=== PATIENT | male | born 1990 ===

== ENCOUNTER 2020-11-07 18:46 | Inpatient (IN) | payer BC ==
[~2020-11-07] VITALS: Ht 182.9 cm; Wt 102.3 kg
[2020-11-07] MEDS ORDERED: SODIUM CHLORIDE FLUSH 10ML SYR IVF ONE (19:00)
--- NOTE | 2020-11-07 19:11 | NUR ---
BIB FLIGHT FROM [facility]. PT HAVING DIFFICULTY BREATHING WHEN HE WENT THERE, PT WAS 84 ON RA WITH A LOT OF WORK OF BREATHING. PT RECIVED STEROIDS, 3 LITERS FLUIDS, DOXY AND ZOSYN IV, NEG RAPID COVID TEST, CONTINUOUS NEB TREATMENT IN FLIGHT AND NEB TREATMENTS IN PREVIOUS HOSP WELL. PT PLACED ON HIGH FLOW NC AT THIS TIME. PT SPEAKIN IN 10-12 WORD SENTENCES. PT ABLE TO STAND UP TO USE URINAL BUT GETS VERY SOB. PT ON ALL MONITORS, SATING 96 AND UP AT THIS TIME, AFEBRILE. WAS FEBRILE IN [facility] AND RECIVED TORDOL AND TYLENOL WELL.
--- NOTE | 2020-11-07 19:43 | NUR ---
PT STILL SHORT OF BREATH BUT SPEAKING IN MORE FULL SENTENCES. PT ON PHONE WITH FAMILY. PT PROVIDE WATER AND SNACKS. OK PER ERP
[2020-11-07] MEDS ORDERED: ALPR2TAB2 PO (20:19)
[2020-11-07] MEDS ORDERED: ALBU18HF INH (20:19)
--- NOTE | 2020-11-07 20:20 | NUR ---
HOSP AT BEDSIDE
[2020-11-07] MEDS ORDERED: DOXYCYCLINE 100MG TABLET PO SCH (21:00)
[2020-11-07] MEDS ORDERED: LABETALOL 5MG/ML, 20ML IVPush PRN (21:00)
[2020-11-07] MEDS ORDERED: CEFTRIAXONE 1,000 MG in DEXTROSE 5% 50 ML IVPB SCH (21:00)
[2020-11-07] MEDS ORDERED: ONDANSETRON 2MG/ML, 2ML IVPush PRN (21:00)
[2020-11-07] MEDS ORDERED: methylPREDNISolone SOD SUCC 125 MG/2 ML IVPush SCH (21:00)
--- NOTE | 2020-11-07 21:32 | NUR ---
report given to [facility]cca hollis
[2020-11-07] MEDS: NICOTINE 21 MG/24 HR PATCH.TD24 TD SCH (22:23)
[2020-11-07 22:27] VITALS: BP 139/77
[2020-11-07] MEDS ORDERED: ALBUTEROL SULFATE 2.5 MG/3 ML NPPB PRN (22:30)
[2020-11-07] MEDS ORDERED: ENOXAPARIN 40 MG/0.4 ML SQ SCH (22:30)
[2020-11-07] MEDS: CEFTRIAXONE 2 GM in DEXTROSE 5% 50 ML IVPB SCH (22:59)
[2020-11-07] MEDS: methylPREDNISolone SOD SUCC 125 MG/2 ML IVPush SCH (23:02)
[2020-11-07] MEDS: HEPARIN 5,000 UNITS/ML, 1ML SQ SCH (23:02)
[2020-11-07] MEDS: ALBUTEROL SULFATE 2.5 MG/3 ML NPPB SCH (23:10)
[2020-11-08] MEDS: AZITHROMYCIN 500 MG in SODIUM CHLORIDE 0.9% 250 ML IV SCH (00:27)
[2020-11-08] MEDS: ACETAMINOPHEN 325 MG TABLET PO PRN ×2 (00:56→05:31)
[2020-11-08] MEDS: MELATONIN 5 MG TABLET PO PRN (00:57)
[2020-11-08] MEDS: ALBUTEROL SULFATE 2.5 MG/3 ML NPPB SCH ×6 (03:00→22:45)
[2020-11-08 04:19] LABS: BASOPHILS % (AUTO) 1 % (0-1); EOSINOPHILS % (AUTO) 0 % (1-7); LYMPHOCYTES % (AUTO) 6 % (22-44); MEAN CORPUSCULAR HEMOGLOBIN 32.5 pg (27.5-34.5); MEAN CORPUSCULAR HGB CONC 33.9 g/dL (33.2-36.2); MONOCYTES % (AUTO) 4 % (2-9); NEUTROPHILS % (AUTO) 90 % (42-75); PLATELET COUNT 226 x10^3/uL (130-400); RED BLOOD COUNT 4.12 x10^6/uL (4.38-5.82); RED CELL DISTRIBUTION WIDTH 13.7 % (9.4-14.8)
[2020-11-08 04:33] LABS: ALBUMIN 2.9 g/dL (3.4-5.0); ANION GAP 6 mmol/L (5-15); CALCIUM 8.6 mg/dL (8.5-10.1); CHLORIDE 116 mmol/L (98-107)
[2020-11-08 04:35] LABS: ALANINE AMINOTRANSFERASE 42 U/L (12-78); ALKALINE PHOSPHATASE 74 U/L (45-117); BILIRUBIN,TOTAL 0.2 mg/dL (0.2-1.0); TOTAL PROTEIN 7.5 g/dL (6.4-8.2)
[2020-11-08] MEDS: methylPREDNISolone SOD SUCC 125 MG/2 ML IVPush SCH ×2 (05:30→09:06)
[2020-11-08] MEDS: PANTOPRAZOLE 40MG TABLET PO SCH (05:42)
[2020-11-08 07:41] LABS: FREE T4 (FREE THYROXINE) 0.77 ng/dL (0.76-1.46)
[2020-11-08] MEDS: HEPARIN 5,000 UNITS/ML, 1ML SQ SCH ×2 (09:06→16:18)
[2020-11-08] MEDS: NICOTINE 21 MG/24 HR PATCH.TD24 TD SCH ×2 (09:06→22:23)
[2020-11-08] MEDS: methylPREDNISolone SOD SUCC 40 MG/ML IVPush SCH ×3 (09:20→22:22)
[2020-11-08 14:33] VITALS: BP 138/80
[2020-11-08 19:34] VITALS: BP 129/75
[2020-11-08] MEDS: CEFTRIAXONE 2 GM in DEXTROSE 5% 50 ML IVPB SCH (22:23)
[2020-11-09] MEDS: HEPARIN 5,000 UNITS/ML, 1ML SQ SCH ×3 (00:23→16:11)
[2020-11-09] MEDS: AZITHROMYCIN 500 MG in SODIUM CHLORIDE 0.9% 250 ML IV SCH (00:23)
[2020-11-09 00:25] VITALS: BP 123/79
[2020-11-09 04:36] LABS: BASOPHILS % (AUTO) 0 % (0-1); EOSINOPHILS % (AUTO) 0 % (1-7); LYMPHOCYTES % (AUTO) 6 % (22-44); MEAN CORPUSCULAR HEMOGLOBIN 32.5 pg (27.5-34.5); MEAN CORPUSCULAR HGB CONC 33.7 g/dL (33.2-36.2); MEAN PLATELET VOLUME 7.3 fL (7.4-10.4); MONOCYTES % (AUTO) 5 % (2-9); NEUTROPHILS % (AUTO) 88 % (42-75); PLATELET COUNT 268 x10^3/uL (130-400); RED BLOOD COUNT 4.09 x10^6/uL (4.38-5.82); RED CELL DISTRIBUTION WIDTH 13.9 % (9.4-14.8)
[2020-11-09 04:45] LABS: ANION GAP 8 mmol/L (5-15); CALCIUM 8.9 mg/dL (8.5-10.1); CHLORIDE 110 mmol/L (98-107)
[2020-11-09 04:46] LABS: CREATININE 0.61 mg/dL (0.7-1.3)
[2020-11-09] MEDS: methylPREDNISolone SOD SUCC 40 MG/ML IVPush SCH ×2 (05:12→18:23)
[2020-11-09] MEDS: ALBUTEROL SULFATE 2.5 MG/3 ML NPPB SCH ×4 (06:00→19:43)
[2020-11-09 06:54] VITALS: BP 101/67
[2020-11-09] MEDS: PANTOPRAZOLE 40MG TABLET PO SCH (08:31)
[2020-11-09] MEDS: NICOTINE 21 MG/24 HR PATCH.TD24 TD SCH ×2 (08:34→22:07)
[2020-11-09 12:38] VITALS: BP 108/69
[2020-11-09] MEDS: GUAIFENESIN/DM 100-10MG, 5ML UDC PO PRN ×2 (13:49→18:03)
[2020-11-09 19:53] VITALS: BP 145/92
[2020-11-09] MEDS: ACETAMINOPHEN 325 MG TABLET PO PRN (19:59)
[2020-11-09] MEDS: CEFTRIAXONE 2 GM in DEXTROSE 5% 50 ML IVPB SCH (22:07)
[2020-11-09] MEDS: MELATONIN 5 MG TABLET PO PRN (22:07)
[2020-11-10 00:20] VITALS: BP 133/92
[2020-11-10] MEDS: GUAIFENESIN/DM 100-10MG, 5ML UDC PO PRN ×2 (00:22→09:17)
[2020-11-10] MEDS: AZITHROMYCIN 500 MG in SODIUM CHLORIDE 0.9% 250 ML IV SCH (00:23)
[2020-11-10] MEDS: HEPARIN 5,000 UNITS/ML, 1ML SQ SCH ×2 (00:23→08:00)
[2020-11-10] MEDS: methylPREDNISolone SOD SUCC 40 MG/ML IVPush SCH ×2 (03:20→11:12)
[2020-11-10 06:33] VITALS: BP 116/73
[2020-11-10] MEDS: ALBUTEROL SULFATE 2.5 MG/3 ML NPPB SCH ×2 (07:00→10:13)
[2020-11-10] MEDS: NICOTINE 21 MG/24 HR PATCH.TD24 TD SCH (08:16)
[2020-11-10] MEDS: PANTOPRAZOLE 40MG TABLET PO SCH (08:16)
[2020-11-10] MEDS ORDERED: PRED20TA PO (08:44)
[2020-11-10] MEDS ORDERED: AMOX1TAB64 PO (08:44)
[2020-11-10] MEDS ORDERED: FLUT1AER PO (08:44)
[2020-11-10] MEDS ORDERED: MONT10TA6 PO (08:44)
[2020-11-10] MEDS ORDERED: GUAI5SYR PO (12:00)
== END 2020-11-10 14:47 | disposition home or self-care (01) | DRG 871 ==
LOC: ED 20:00 → EDIP 20:06 → ED 20:36 → CCU 22:17 → 3N 11-08 14:22
PROVIDERS: ADMIT Family Medicine; ATTEND Hospitalist
DX: A41.9 Sepsis, unspecified organism (principal); J18.9 Pneumonia, unspecified organism; J96.01 Acute respiratory failure with hypoxia; J45.901 Unspecified asthma with (acute) exacerbation; R65.20 Severe sepsis without septic shock; E66.9 Obesity, unspecified; F12.90 Cannabis use, unspecified, uncomplicated; F17.200 Nicotine dependence, unspecified, uncomplicated; F41.9 Anxiety disorder, unspecified; I10 Essential (primary) hypertension; K21.9 Gastro-esophageal reflux disease without esophagitis; Z20.822 Contact with and (suspected) exposure to COVID-19; Z87.01 Personal history of pneumonia (recurrent)
CPT/HCPCS: 36415; 36600; 84145; 99291; J7613; 71045; 80048; 80053; 82803; 83615; 84439; 84443; 84481; 85025; 85379; 86140; 87081; 94640; G0378; J0456; J0696; J1644; U0005; J2920; J2930; J7050; U0003